=== PATIENT | male | born 1965 | race Caucasian/White ===

== ENCOUNTER 2017-01-19 12:24 | Day surgery (SDC) | payer BC, OTHER ==
[2017-01-13 09:25] LABS: HEMOGLOBIN 11.6 g/dL (13.6-17.8)
[2017-01-13 09:27] LABS: HEMATOCRIT 35.2 % (40.0-51.0)
[2017-01-13 10:09] LABS: BUN (BLOOD UREA NITROGEN) 15 MG/DL (6-23); CALCIUM, SERUM 9.4 MG/DL (8.5-10.4); CHLORIDE, SERUM 104 MMOL/L (96-112); CO2 (CARBON DIOXIDE) 31 MMOL/L (24-34); CREATININE 1.03 MG/DL (0.70-1.30); GFR AFRICAN AMERICAN 98 ML/MIN (>=60); GFR NON AFRICAN AMERICAN 85 ML/MIN (>=60); GLUCOSE, SERUM 92 MG/DL (60-99); POTASSIUM, SERUM 4.3 MMOL/L (3.5-5.3); SODIUM, SERUM 141 MMOL/L (135-148)
--- NOTE | ~2017-01-19 | OP ---
Record Of Operation [facility] [address] [place]. [address] NAME: ROBEL CONROY : 69 STATUS : [place] [facility] [place] [id number] AGE: 51 ADM/REG DATE : 01/19/17 MR#: [id number] REPORT SERV DATE: 01/19/17 DICTATED BY: ZAINA FELIZ DATE: 01/19/17 REPORT STATUS : Draft TRANSCRIBED BY: SARITA DATE: 01/19/17 DATE OF PROCEDURE: 01/19/2017 PREPROCEDURE DIAGNOSIS: Grade 3 internal hemorrhoids. POSTPROCEDURE DIAGNOSIS: Grade 3 internal hemorrhoids. PROCEDURE: PPH, procedure for prolapse and hemorrhoids. PROCEDURE IN DETAIL: The patient was taken to the operating room, induced under general anesthesia, placed into the prone trixie-knife position, prepped and draped in the usual sterile fashion. A pudendal nerve block was placed with a total of 10 mL of a 1:1 mixture of 1% lidocaine and 0.25% Sensorcaine injected locally and bilaterally. The anus was dilated first with a clear plastic fenestrated obturator followed by the clear plastic retractor and obturator. This was sewn into place anteriorly and posteriorly with a 2-0 Vicryl UR6 and then the obturator was replaced with the fenestrated obturator. Pursestring suture 2-0 Prolene was placed circumferentially 4 cm from the dentate line above the apex of the internal hemorrhoids. The stapler was placed through the pursestring which was tied taut around the shaft of the stapler, brought out through the two eyelets and then tied taut again. It was held taut as the stapler was closed until the marker was [facility] in the green window, held for 60 seconds through the green window for 60 seconds, and fired and held for 60 seconds. It was turned one full turn, brought out through the anus. There was a complete ring of rectal mucosa measuring 2 cm circumferentially. Hemostasis was checked using the fenestrated obturator and irrigation. Of note, the gentleman is over 6 feet 4 inches tall, and there appeared to be still some redundant tissue remaining, so in the three quadrants; left lateral, right posterior, and right anterior, the remaining tissue was pexy to the staple line by doing a [id number] 3-0 Vicryl suture through the apex of the remaining tissue pexing it to the staple line and sewing it into place. Hemostasis was checked a second time using the fenestrated obturator which was excellent and then the retractor was removed, the two stay sutures cut, the patient was cleaned and dried followed by two 4x4s, peripad, and mesh panties. He tolerated the procedure well. MONI/SARITA Zaina Feliz M.D. / [id number] CC: Vi Morgan M.D. Jay Philippose, M.D.
[~2017-01-19 12:24] MED LIST: ASABAYER PO; CARTIA XT240 MG/24 PO; HCTZ25B PO; PRILOSEC40 MG PO; PRIN10 PO; RANITIDINE300 MG PO
== END 2017-01-19 19:29 | disposition home or self-care (01) ==
LOC: SDC 12:24
PROVIDERS: Surgery
PROC: 06BY0ZC Excision of Hemorrhoidal Plexus, Open Approach (ICD-10-PCS; principal; 2017-01-19 14:15)
DX: K64.2 Third degree hemorrhoids (principal); I10 Essential (primary) hypertension; I48.91 Unspecified atrial fibrillation
CPT/HCPCS: 80048; 85014; 85018; 88304; 93005; A9270-GY; J1170; J2175; J2250; J2405; J2550; J2710; J2795; J3010